=== PATIENT | female | born 1995 | race Caucasian/White ===

== ENCOUNTER 2017-09-28 22:45 | Emergency (ER) | payer OTHER ==
--- NOTE | 2017-09-28 23:00 | ER Report ---
History and Physical Time Seen By MD: 22:59 HPI/ROS CHIEF COMPLAINT: concern about arms circulation HISTORY OF PRESENT ILLNESS: This is a 22 year old female. She has been traveling from [place], visiting friends. Has been having intermittent tingling in both arms. Seems like this will start and then go away, like the arms were going asleep. She has had a blood clot in her brain so was worried that this was a circulation problem. She had some blue coloring to the skin of her arms. She has had a little shortness of breath and dizziness. Has not been at this altitude in the past. No cough or fevers. No chest pain, but did feel a little anxious. No palpitations. No nausea or vomiting. No abdominal pain. No musculoskeletal pain. Allergies: Coded Allergies: hydromorphone (Verified Allergy, Unknown, 09/28/17) ondansetron (Verified Allergy, Unknown, 09/28/17) Home Meds No Active Prescriptions or Reported Meds Reviewed Nurses Notes: Yes Constitutional Vital Sign - Last 24 Hours 09/28/17 09/28/17 09/28/17 09/28/17 22:47 22:49 23:00 23:15 Temp 98.3 Pulse 80 91 Resp 16 B/P (MAP) 110/94 131/73 (92) 110/94 (99) Pulse Ox 97 97 97 O2 Delivery Room Air 09/28/17 09/28/17 09/29/17 09/29/17 23:30 23:45 00:00 00:30 Pulse 75 71 75 B/P (MAP) 109/63 (78) 111/73 (86) 118/75 (89) Pulse Ox 96 95 95 94 09/29/17 00:35 Pulse 69 Pulse Ox 94 Physical Exam General Appearance: The patient is alert, has no immediate need for airway protection and no current signs of toxicity. Eyes: Pupils equal and round no injection. ENT: Normal oral mucosa. Moist mucous membranes. Neck: Neck is supple and non tender. Respiratory: Chest is non tender, lungs are clear to auscultation. Cardiac: regular rate and rhythm. Cap refill and pulses in wrists normal. Gastrointestinal: Abdomen is soft and non tender, no masses, bowel sounds normal. Musculoskeletal: Extremities have full range of motion. Non tender. Skin: No rashes or lesions. Blue coloration comes off and seems to have been blue coloring from her shirt. DIFFERENTIAL DIAGNOSIS: After history and physical exam differential diagnosis was considered for concern about circulatory issues, this seems more likely to be a nerve problem or could be related to some nerve compression in the arms although with it being bilateral that would be hard to have happened simultaneously. Possible altitude related. Medical Decision Making Data Points Result Diagram: 09/28/17225809/28/172258 Laboratory Hematology Test 09/28/17 22:59 Red Blood Count 4.66 M/uL (4.17-5.56) Mean Corpuscular Volume 85.2 fL (80.0-96.0) Mean Corpuscular Hemoglobin 28.8 pg (26.0-33.0) Mean Corpuscular Hemoglobin Concent 33.8 g/dL (32.0-36.0) Red Cell Distribution Width 15.2 % (11.5-14.5) Mean Platelet Volume 7.3 fL (7.2-11.1) Neutrophils (%) (Auto) 54.4 % (39.4-72.5) Lymphocytes (%) (Auto) 34.0 % (17.6-49.6) Monocytes (%) (Auto) 6.7 % (4.1-12.4) Eosinophils (%) (Auto) 3.7 % (0.4-6.7) Basophils (%) (Auto) 1.2 % (0.3-1.4) Nucleated RBC Relative Count (auto) 0.0 /100WBC Neutrophils # (Auto) 4.6 K/uL (2.0-7.4) Lymphocytes # (Auto) 2.9 K/uL (1.3-3.6) Monocytes # (Auto) 0.6 K/uL (0.3-1.0) Eosinophils # (Auto) 0.3 K/uL (0.0-0.5) Basophils # (Auto) 0.1 K/uL (0.0-0.1) Nucleated RBC Absolute Count (auto) 0.00 K/uL Erythrocyte Sedimentation Rate 4 mm/HOUR (0-20) Prothrombin Time 13.3 seconds (12.0-14.4) Prothromb Time International Ratio 1.01 Activated Partial Thromboplast Time 26 seconds (23-35) Sodium Level 139 mmol/L (137-145) Potassium Level 4.4 mmol/L (3.5-5.0) Chloride Level 103 mmol/L (98-107) Carbon Dioxide Level 24 mmol/L (22-31) Blood Urea Nitrogen 13 mg/dl (7-18) Creatinine 0.90 mg/dl (0.52-1.04) Glomerular Filtration Rate Calc > 60.0 Random Glucose 110 mg/dl (75-110) Calcium Level 9.6 mg/dl (8.4-10.2) Total Bilirubin 0.2 mg/dl (0.2-1.3) Aspartate Amino Transf (AST/SGOT) 44 U/L (0-35) Alanine Aminotransferase (ALT/SGPT) 26 U/L (0-56) Alkaline Phosphatase 54 U/L (0-126) C-Reactive Protein 0.6 mg/dl (<1.0) Total Protein 7.5 g/dl (6.3-8.2) Albumin 4.7 g/dl (3.5-5.0) Chemistry Test 09/28/17 22:59 White Blood Count 8.5 k/uL (4.5-11.0) Red Blood Count 4.66 M/uL (4.17-5.56) Hemoglobin 13.4 g/dL (12.0-16.0) Hematocrit 39.7 % (34.0-47.0) Mean Corpuscular Volume 85.2 fL (80.0-96.0) Mean Corpuscular Hemoglobin 28.8 pg (26.0-33.0) Mean Corpuscular Hemoglobin Concent 33.8 g/dL (32.0-36.0) Red Cell Distribution Width 15.2 % (11.5-14.5) Platelet Count 274 K/uL (150-450) Mean Platelet Volume 7.3 fL (7.2-11.1) Neutrophils (%) (Auto) 54.4 % (39.4-72.5) Lymphocytes (%) (Auto) 34.0 % (17.6-49.6) Monocytes (%) (Auto) 6.7 % (4.1-12.4) Eosinophils (%) (Auto) 3.7 % (0.4-6.7) Basophils (%) (Auto) 1.2 % (0.3-1.4) Nucleated RBC Relative Count (auto) 0.0 /100WBC Neutrophils # (Auto) 4.6 K/uL (2.0-7.4) Lymphocytes # (Auto) 2.9 K/uL (1.3-3.6) Monocytes # (Auto) 0.6 K/uL (0.3-1.0) Eosinophils # (Auto) 0.3 K/uL (0.0-0.5) Basophils # (Auto) 0.1 K/uL (0.0-0.1) Nucleated RBC Absolute Count (auto) 0.00 K/uL Erythrocyte Sedimentation Rate 4 mm/HOUR (0-20) Prothrombin Time 13.3 seconds (12.0-14.4) Prothromb Time International Ratio 1.01 Activated Partial Thromboplast Time 26 seconds (23-35) Glomerular Filtration Rate Calc > 60.0 Calcium Level 9.6 mg/dl (8.4-10.2) Total Bilirubin 0.2 mg/dl (0.2-1.3) Aspartate Amino Transf (AST/SGOT) 44 U/L (0-35) Alanine Aminotransferase (ALT/SGPT) 26 U/L (0-56) Alkaline Phosphatase 54 U/L (0-126) C-Reactive Protein 0.6 mg/dl (<1.0) Total Protein 7.5 g/dl (6.3-8.2) Albumin 4.7 g/dl (3.5-5.0) Coagulation Test 09/28/17 22:59 Prothrombin Time 13.3 seconds Prothromb Time International Ratio 1.01 Activated Partial Thromboplast Time 26 seconds EKG/Imaging Imaging VENOUS DOPP UPPER BILAT EXTREM HISTORY: arm tingling COMPARISON: None. FINDINGS: Grayscale compression, duplex and color Doppler interrogation of the bilateral upper extremity veins was performed. Right: Jugular vein - Negative. Subclavian vein - Negative. Axillary vein - Negative. Basilic vein - Negative. Cephalic vein - Negative. Brachial veins - Negative. Left: Jugular vein - Negative. Subclavian vein - Negative. Axillary vein - Negative. Basilic vein - Negative. Cephalic vein - Negative. Brachial veins - Negative. IMPRESSION: No evidence for DVT within the bilateral upper extremities. Report Dictated By: Gopi Villalta MD at 09/29/2017 12:23 AM ED Course/Re-evaluation Clinical Indication for ER IV: Hydration, IV Access ED Course Vitals remain normal. Labs unremarkable. Venous ultrasound negative. Paresthesias could be nerve or altitude related. Patient will follow-up for re- evaluation on return home. Decision to Disposition Date: Sep 29, 2017 Decision to Disposition Time: 00:49 Depart Departure Latest Vital Signs Vital Signs Date Time Temp Pulse Resp B/P (MAP) Pulse Ox O2 Delivery O2 Flow Rate FiO2 09/29/17 00:35 69 94 09/29/17 00:30 118/75 (89) 09/28/17 22:47 98.3 16 Room Air Impression: Primary Impression: Paresthesia and pain of both upper extremities Condition: Improved Disposition: HOME OR SELF-CARE New Scripts No Active Prescriptions or Reported Meds Patient Instructions: Paresthesia (ED) Additional Instructions: No new medications. Labs and ultrasound negative tonight in the ER. Follow-up with your doctor upon returning home. ARASH ZAMARRIPA MD Sep 28, 2017 23:00
[2017-09-28 23:15] LABS: PLATELET COUNT, AUTOMATED 274 K/uL (150-450)
[2017-09-28 23:21] LABS: INR 1.01
--- NOTE | 2017-09-29 00:28 | RADIOLOGY IMAGING REPORT ---
FACILITY: [facility] PATIENT NAME: Komal Pillai : 1995 MR: [id number] V: [id number] EXAM DATE: ORDERING PHYSICIAN: ARASH ZAMARRIPA TECHNOLOGIST: Location: [facility] - [place] Patient: Komal Pillai : 1995 Visit/Account:[id number] Date of Sevice: 09/28/2017 VENOUS DOPP UPPER BILAT EXTREM HISTORY: arm tingling COMPARISON: None. FINDINGS: Grayscale compression, duplex and color Doppler interrogation of the bilateral upper extremity veins was performed. Right: Jugular vein - Negative. Subclavian vein - Negative. Axillary vein - Negative. Basilic vein - Negative. Cephalic vein - Negative. Brachial veins - Negative. Left: Jugular vein - Negative. Subclavian vein - Negative. Axillary vein - Negative. Basilic vein - Negative. Cephalic vein - Negative. Brachial veins - Negative. IMPRESSION: No evidence for DVT within the bilateral upper extremities. Report Dictated By: Gopi Villalta MD at 09/29/2017 12:23 AM Report E-Signed By: Gopi Villalta MD at 09/29/2017 12:24 AM WSN:[id number]
[2017-09-29 00:30] VITALS: BP 118/75
== END 2017-09-29 00:53 | disposition home or self-care (01) ==
LOC: ER 22:58
DX: R20.2 Paresthesia of skin (principal); R06.02 Shortness of breath; R42 Dizziness and giddiness
CPT/HCPCS: 82040; 82247; 82310; 82374; 82435; 82565; 82947; 84075; 84132; 84155; 84295; 84450; 84460; 84520; 85025; 85610; 85651; 85730; 86140; 93970; 99283